=== PATIENT | male | born 1965 | race Caucasian/White ===

== ENCOUNTER → 2017-02-22 | Outpatient (CLI) | payer BC ==
[~2017-02-22] VITALS: Ht 185.4 cm; Wt 97.7 kg
[~2017-02-22] MED LIST: AMBIEN 10MG10 M1 PO; AMITRIPTYLINE H25 M1 PO; EFFEXOR-XR150 MG PO; FLEXERIL5 MG PO; FLUOXETINE40 MG PO; HCTZ 25MG TAB25 MG PO; HCTZ PO; JANUMET 1000 MG1 TA1 PO; LEVEMIR100 U/ML SC; LEVOTHYROXINE PO; LIPITOR20 MG PO; LOFIBRA160 MG PO; METFORMIN1000 MG PO; NORCO 325 MG-7.1 TAB PO; NOVOLOG FLEX100 U/ML SC; PERCOCET 325 MG1 TAB PO; PRINIVIL40 MG PO; SYNTHROID0.125 MG/T PO; VERAPAMIL120 MG/TA1 PO; ZOCOR PO
[2017-02-22 08:32] VITALS: BP 119/74; PULSE 82
== END ==
LOC: COL.RAD 08:00
DX: Z53.9 Procedure and treatment not carried out, unspecified reason (principal)

== ENCOUNTER 2017-03-02 07:05 | Outpatient (CLI) | payer BC ==
[~2017-03-02] VITALS: Ht 185.4 cm; Wt 103.2 kg
[2017-03-02] VITALS (9 sets, daily range): BP systolic 103–119; BP diastolic 71–83; PULSE 67–79
[~2017-03-02 07:05] MED LIST changes: -FLEXERIL5 MG PO
[2017-03-02] MEDS ORDERED: FLEXERIL5 MG PO (07:28)
== END 2017-03-02 13:52 | disposition home or self-care (01) ==
LOC: COL.RAD 07:05
DX: M48.07 Spinal stenosis, lumbosacral region (principal); M51.26 Other intervertebral disc displacement, lumbar region
CPT/HCPCS: Q9965

== ENCOUNTER → 2018-06-12 | Outpatient (CLI) | payer BC ==
[~2018-06-12] MED LIST changes: +FLEXERIL5 MG PO
== END ==
LOC: COL.RAD 14:58
DX: M75.31 Calcific tendinitis of right shoulder (principal); M89.311 Hypertrophy of bone, right shoulder

== ENCOUNTER 2022-08-25 06:35 | Day surgery (SDC) | payer BC ==
[~2022-08-25] VITALS: Ht 185.4 cm; Wt 81.0 kg
[2022-08-25] MEDS ORDERED: LOTENSIN HCT 201 TA1 PO (07:06)
[2022-08-25] MEDS ORDERED: NEURONTIN300 MG/CAP PO (07:07)
[2022-08-25] MEDS ORDERED: PROZAC 20MG20 MG PO (07:07)
[2022-08-25] MEDS ORDERED: COZAAR100 MG PO (07:09)
[2022-08-25] MEDS ORDERED: SYNTHROID 0.10.15 MG PO (07:09)
[2022-08-25] MEDS ORDERED: PERCOCET 325 MG1 TA3 PO (07:10)
[2022-08-25] MEDS ORDERED: OZEMPIC2 MG/0.75 SQ (07:11)
[2022-08-25] MEDS ORDERED: DESYREL 50MG50 MG PO (07:12)
[2022-08-25] MEDS ORDERED: XIGDUO5/1000 (07:13)
[2022-08-25 07:21] VITALS: BP 144/96; PULSE 69; TEMP 97.2
[2022-08-25 09:00] VITALS: BP 112/76; PULSE 73
[2022-08-25 09:15] VITALS: BP 124/79; PULSE 75
[2022-08-25 09:27] VITALS: TEMP 97.6
--- NOTE | 2022-08-25 09:30 | NUR ---
PATIENT IS DISCHARGED AT THIS TIME ACCOMPANIED BY HIS DAUGHTER. ESCORTED VIA WHEELCHAIR TO HOME BOUND VEHICLE. PATIENT IS ABLE TO VERBALIZE UNDERSTANDING OF DISCHARGE EDUCATION AND FOLLOW UP BEFORE LEAVING. PATIENT IS ALERT AND ORIENTED, TOLERATED PO WELL, DENIES ANY PAIN OR DISCOMFORT.
== END 2022-08-25 09:30 ==
LOC: SDCO 06:35
DX: Z12.11 Encounter for screening for malignant neoplasm of colon (principal); I10 Essential (primary) hypertension; Z79.899 Other long term (current) drug therapy
CPT/HCPCS: J2704; J7030

== ENCOUNTER 2024-03-03 18:11 | Emergency (ER) | payer BC ==
[~2024-03-03] VITALS: Ht 182.9 cm; Wt 79.5 kg
[~2024-03-03 18:11] MED LIST changes: +COZAAR100 MG PO; +DESYREL 50MG50 MG PO; +LOTENSIN HCT 201 TA1 PO; +NEURONTIN300 MG/CAP PO; +OZEMPIC2 MG/0.75 SQ; +PERCOCET 325 MG1 TA3 PO; +PROZAC 20MG20 MG PO; +SYNTHROID 0.10.15 MG PO; +XIGDUO5/1000
[2024-03-03 18:21] VITALS: TEMP 98.1
[2024-03-03] MEDS ORDERED: Acetaminophen 325 MG TAB PO ONE (20:15)
[2024-03-03] MEDS ORDERED: Cyclobenzaprine 10 MG TAB PO ONE (20:30)
[2024-03-03] MEDS ORDERED: Ibuprofen 400 MG TAB PO ONE (20:30)
[2024-03-03 21:12] VITALS: BP 138/90; PULSE 80
== END 2024-03-03 21:10 | disposition home or self-care (01) ==
LOC: COL.ER 18:11
DX: S00.93XA Contusion of unspecified part of head, initial encounter (principal); S10.93XA Contusion of unspecified part of neck, initial encounter; M54.6 Pain in thoracic spine; W17.89XA Other fall from one level to another, initial encounter; W22.8XXA Striking against or struck by other objects, initial encounter